=== PATIENT | female | born 1975 | race Caucasian/White ===

== ENCOUNTER 2025-07-07 12:33 | Emergency (ER) | payer OTHER ==
[~2025-07-07] VITALS: Ht 160 cm; Wt 60.3 kg
[2025-07-07 12:51] VITALS: PULSE 70; RESP 18; TEMP 98; O2SAT 100
[2025-07-07] MEDS ORDERED: NEURONTIN100 MG PO (13:16)
[2025-07-07] MEDS ORDERED: DEXAMETHASONE6 MG PO (13:18)
== END 2025-07-07 13:36 | disposition home or self-care (01) ==
LOC: ER 13:15
DX: M54.12 Radiculopathy, cervical region (principal); Z87.442 Personal history of urinary calculi
CPT/HCPCS: 99283